=== PATIENT | female | born 1955 | race Asian ===

== ENCOUNTER 2021-01-19 22:48 | Emergency (ER) | payer MEDICAID ==
[~2021-01-19] VITALS: Ht 160 cm; Wt 81.6 kg
[2021-01-19 23:00] VITALS: BP_SYST 159
--- NOTE | 2021-01-19 23:00 | NUR ---
PT TO REMAIN IN ER LOBBY FOR BED, NO BEDS CURRENTLY AVAILABLE.
--- NOTE | 2021-01-19 23:05 | NUR ---
PT AAO AND AMBULATORY REPORTING HIGH BLOOD PRESSURE TODAY. UPON ARRIVAL, BLOOD PRESSURE IS CURRENTLY 159/89. PT TOOK ALL PRESCRIBED MEDICATION AND DENIES ANY PAIN CURRENTLY.
[2021-01-19 23:25] VITALS: BP_SYST 159
--- NOTE | 2021-01-19 23:25 | NUR ---
PT ELOPED FROM FACILITY WITHOUT BEING SEEN.
--- NOTE | 2021-01-19 23:25 | NUR ---
Damon vergara in [facility] - 01/19/21 at 2330 by GOYO PT AWOL'D FROM FACILITY WITHOUT BEING SEEN.
== END 2021-01-19 23:25 | disposition left against medical advice (07) ==
LOC: SED 22:48
DX: I10 Essential (primary) hypertension (principal); Z53.21 Procedure and treatment not carried out due to patient leaving prior to being seen by health care provider